=== PATIENT | male | born 1945 | race Caucasian/White ===

== ENCOUNTER → 2016-03-19 | Outpatient (CLI) | payer MEDICARE ==
[~2016-03-19] MED LIST: ACTOS45 MG PO; ALLERGY RELIEF10 MG PO; ASPIRIN81 M1 PO; ASTEPRO137 MCG/Ac; ASTEPRO137 MCG/Ac NS; BACTRIM DS 8001 TA1 PO; BACTROBAN CREAM15 GM PO; CADUET 10 MG-201 TA1 PO; CADUET 10 MG-201 TAB PO; CALCIUM600 M2 PO; DOXYCYCLINE100 M3 PO; FUROSEMIDE40 MG PO; GLYBURIDE AND M PO; GLYBURIDE AND M1 TA1 PO; GLYBURIDE/METFO1 TA2 PO; GLYBURIDE/METFO1 TA9 PO; HYDROCODONE BIT1 T11 PO; IBUPROFEN 30 M800 MG PO; KEFLEX500 M1 PO; LANTUS SOLOS100 U/M1 SC; LANTUS100 U/ML SC; LEVAQUIN750 M1 PO; LIPITOR20 MG PO; METFORMIN HCL500 MG PO; MOTRIN600 MG PO; NOVOLOG1 UNIT/0.0 SC; NOVOLOG100 U/ML SC; OMEGA 3 120 MG-1 CAP PO; OMEGA Q PLUS; OMEPRAZOLE40 MG PO; PATANOL 0.1% 5 M5 ML OPH; POTASSIUM CHLO10 ME1 PO; VICODIN 5/500 505 MG PO; VICODIN 500 MG-1 TAB PO
== END | disposition home or self-care (01) ==
LOC: LAB 13:47
DX: B34.9 Viral infection, unspecified (principal); J01.00 Acute maxillary sinusitis, unspecified; R51 Headache

== ENCOUNTER 2016-05-24 14:43 | Emergency (ER) | payer MEDICARE ==
[~2016-05-24] VITALS: Wt 136.1 kg
[~2016-05-24 14:43] MED LIST changes: -HYDROCODONE BIT1 T11 PO; -METFORMIN HCL500 MG PO
[2016-05-24] MEDS ORDERED: METFORMIN HCL500 MG PO (14:56)
[2016-05-24 15:35] LABS: BASO % 0.5 % (0.0-1.0); EOS # 0.1 10*3/uL (0.0-0.4); EOS % 2.4 % (1.0-4.0); HEMATOCRIT 37.8 % (42.0-52.0); HEMOGLOBIN 12.1 g/dl (14.0-18.0); IG # 0.1 10*3/uL (0.0-0.1); LYMPH # 1.4 10*3/uL (1.3-4.4); LYMPH % 23.2 % (27.0-41.0); MEAN CELL VOLUME 95.7 fl (80.0-94.0); MEAN CORPUSCULAR HGB 30.6 pg (27.0-31.0); MEAN PLATELET VOLUME 9.5 fl (9.6-12.3); MONO # 0.4 10*3/uL (0.1-1.0); MONO % 7.1 % (3.0-9.0); NEUT # 3.9 10*3/uL (2.3-7.9); NEUT % 65.1 % (47.0-73.0); PLATELET COUNT AUTOMATED 126 10*3/uL (130-400); RED BLOOD COUNT 3.95 10*6/uL (4.50-5.90); RED CELL DISTRI WIDTH 14.3 % (0-14.5); WHITE BLOOD COUNT 5.9 10*3/uL (4.8-10.8)
[2016-05-24 15:46] LABS: PROTHROMBIN TIME 10.2 SECONDS (9.0-12.4)
[2016-05-24 15:52] LABS: ALBUMIN 3.5 gm/dl (3.1-4.5); ALKALINE PHOSPHATASE 115 U/L (45-117); BUN 27 mg/dl (7-24); C-REACTIVE PROTEIN 0.61 MG/DL (0-0.3); CARBON DIOXIDE 32 mmol/L (21-32); CHLORIDE 106 mmol/L (98-107); CPK 139 U/L (39-308); EST GLOM FILT AFRICAN AMERICAN 52 ml/min; GLUCOSE 143 mg/dL (65-99); MAGNESIUM 2.2 mg/dL (1.5-2.1); POTASSIUM 4.8 mmol/L (3.5-5.1); SGOT/AST 18 IU/L (3-35); SGPT/ALT 31 U/L (12-78); SODIUM 144 mmol/L (136-145); TOTAL PROTEIN 6.4 gm/dL (6.4-8.2)
[2016-05-24 15:54] LABS: BILIRUBIN, TOTAL 0.3 mg/dl (0.2-1.0)
[2016-05-24 15:57] LABS: CKMB 6.9 ng/ml (0.5-3.6)
[2016-05-24 16:23] LABS: TROPONIN I < 0.015 ng/ml (<0.045)
[2016-05-24] MEDS ORDERED: HYDROCODONE BIT1 T11 PO (18:58)
== END 2016-05-24 19:00 | disposition home or self-care (01) ==
LOC: ED 14:43
PROVIDERS: Emergency Medicine
DX: S20.212A Contusion of left front wall of thorax, initial encounter (principal); Z90.49 Acquired absence of other specified parts of digestive tract; Z79.899 Other long term (current) drug therapy; W00.0XXA Fall on same level due to ice and snow, initial encounter; Y93.89 Activity, other specified; Y92.89 Other specified places as the place of occurrence of the external cause; Y99.9 Unspecified external cause status

== ENCOUNTER → 2016-09-25 | Outpatient (CLI) | payer MEDICARE ==
[~2016-09-25] MED LIST changes: +ALLERGY RELIEF4 M1 PO; +HYDROCODONE BIT1 T11 PO; +METFORMIN HCL500 MG PO; +NEURONTIN100 MG PO
== END | disposition home or self-care (01) ==
LOC: CARD 03:00
DX: R07.2 Precordial pain (principal)

== ENCOUNTER → 2018-04-17 | Outpatient (CLI) | payer MEDICARE ==
[~2018-04-17] MED LIST changes: +OZEMPIC1 MG/0.75 SQ; +PREDNISONE20 M1 PO; +SYMB160 INH
[2018-04-17 15:40] LABS: BASO % 0.6 % (0.0-1.0); EOS # 0.3 10*3/uL (0.0-0.4); EOS % 4.2 % (1.0-4.0); HEMATOCRIT 40.7 % (42.0-52.0); HEMOGLOBIN 12.9 g/dl (14.0-18.0); LYMPH # 1.7 10*3/uL (1.3-4.4); LYMPH % 25.8 % (27.0-41.0); MEAN CELL VOLUME 100.7 fl (80.0-94.0); MEAN CORPUSCULAR HGB 31.9 pg (27.0-31.0); MEAN CORPUSCULAR HGB CONC 31.7 g/dl (33.0-37.0); MEAN PLATELET VOLUME 9.7 fl (9.6-12.3); MONO # 0.3 10*3/uL (0.1-1.0); MONO % 5.3 % (3.0-9.0); NEUT # 4.1 10*3/uL (2.3-7.9); NEUT % 63.3 % (47.0-73.0); PLATELET COUNT AUTOMATED 116 10*3/uL (130-400); RED BLOOD COUNT 4.04 10*6/uL (4.50-5.90); RED CELL DISTRI WIDTH 13.6 % (0-14.5); WHITE BLOOD COUNT 6.4 10*3/uL (4.8-10.8)
[2018-04-18 07:07] LABS: HEPATITIS B SURFACE AG Negative (Negative); HEPATITIS C VIRUS ANTIBODY <0.1 s/co (0.0-0.9)
[2018-04-18 08:13] LABS: RHEUMATOID ARTHRITIS FACTOR <10.0 IU/mL (0.0-13.9)
[2018-04-19 12:06] LABS: DILUTE PROTHROMBIN TIME 47.4 sec (0.0-55.0); DPT CONFIRM RATIO 1.18 Ratio (0.00-1.40); LUPUS DRVVT 42.8 sec (0.0-47.0); PTT-LA 32.1 sec (0.0-51.9); THROMBIN TIME 17.2 sec (0.0-23.0)
[2018-04-19 13:08] LABS: LUPUS REFLEX INTERPRETATION Comment: (.)
[2018-04-20 12:09] LABS: ANTI-RNP ANTIBODIES <0.2 AI (0.0-0.9)
[2018-04-20 21:08] LABS: CCP ANTIBODIES IGG/IGA 4 units (0-19)
[2018-04-22 14:11] LABS: HLA-B27 ANTIGEN Negative (.)
== END | disposition home or self-care (01) ==
LOC: LAB 15:05
PROVIDERS: Orthopaedic Surgery
DX: M25.50 Pain in unspecified joint (principal); R53.1 Weakness

== ENCOUNTER → 2018-05-20 | Day surgery (SDC) | payer MEDICARE ==
[~2018-05-20] VITALS: Ht 182.8 cm; Wt 138.3 kg
--- NOTE | ~2018-05-20 | O ---
[place], [place] OPERATIVE NOTE NAME: [id number] UNIT #: [id number] ROOM: DOCTOR: TERRANCE GO MD BIRTHDATE: [birth year] DOS: 05/20/2018 PREOPERATIVE DIAGNOSIS: Cataract, left eye. POSTOPERATIVE DIAGNOSIS: Cataract, left eye. OPERATION: Extracapsular cataract extraction by phacoemulsification with posterior chamber intraocular lens implantation, left eye. ANESTHESIA: Monitored standby. OPERATIVE FINDINGS AND PROCEDURE: 2% Xylocaine topical anesthetic gel was applied to the eye in the preop area. The patient was taken to the operating room and prepped and draped in the standard fashion for sterile intraocular surgery. A time out procedure was performed verifying correct patient, correct site and corrects lens with Dandre Go M.D. The operating microscope was swung into position and the lid speculum was inserted. Using a Temitope paracentesis blade, a paracentesis was made through clear cornea. Viscoelastic was used to fill the anterior chamber. Using a metal keratome a 2.4 mm self-sealing clear corneal cataract incision was made temporally at the limbus. Using a pre-bent 25 gauge cystotome needle, a standard continuous curvilinear capsulorrhexis was performed. The anterior capsule was removed with forceps. The lens nucleus was hydrodissected and phacoemulsified in the posterior chamber. Cortical material was removed with the irrigation aspiration hand piece and the posterior capsule was then polished with a curet under irrigation. The posterior chamber and capsular bag were filled with viscoelastic. A posterior chamber intraocular lens manufactured by: [employer], Model #[id number] and 22.0 diopters in strength were then inserted into the posterior chamber and within the capsular bag using the lens cartridge and injector system. Viscoelastic was removed using the irrigation aspiration handpiece. The anterior chamber was filled with balanced salt solution through the paracentesis. Both the paracentesis site and cataract incisions were hydrated with BSS and verified to be water-tight and self-sealing. Cefuroxime 1 mg/0.1 mL was injected into the anterior chamber through the paracentesis site. The incision checked to be water-tight using a Weck-Melani sponge. The integrity of the cataract wound and ocular tension were checked. Lid speculum and drapes were removed. The patient was transferred from the operating room to the recovery room in satisfactory condition. [place], [place] OPERATIVE NOTE NAME: IGNACIO TORRES UNIT #: [id number] ROOM: DOCTOR: TERRANCE GO MD BIRTHDATE: [birth year] TERRANCE GO MD CM:OPRECORD:OPERATIVE NOTE [id number] TERRANCE GO MD 05/20/18 1140 interface
[2018-05-20 08:16] VITALS: BP 120/50
[2018-05-20 09:39] VITALS: BP 125/81
[2018-05-20 09:54] VITALS: BP 157/55
[2018-05-20 10:09] VITALS: BP 149/70
== END | disposition home or self-care (01) ==
LOC: SDC 05-15 13:15
DX: E11.36 Type 2 diabetes mellitus with diabetic cataract (principal); H25.812 Combined forms of age-related cataract, left eye; K21.9 Gastro-esophageal reflux disease without esophagitis; E66.01 Morbid (severe) obesity due to excess calories; E78.5 Hyperlipidemia, unspecified; I25.10 Atherosclerotic heart disease of native coronary artery without angina pectoris; I10 Essential (primary) hypertension; Z79.82 Long term (current) use of aspirin; Z79.4 Long term (current) use of insulin; Z79.84 Long term (current) use of oral hypoglycemic drugs; Z79.899 Other long term (current) drug therapy; Z90.49 Acquired absence of other specified parts of digestive tract; Z98.890 Other specified postprocedural states; Z95.818 Presence of other cardiac implants and grafts; Z68.41 Body mass index [BMI] 40.0-44.9, adult; Z83.3 Family history of diabetes mellitus

== ENCOUNTER → 2018-06-10 | Day surgery (SDC) | payer MEDICARE ==
[~2018-06-10] VITALS: Ht 182.8 cm; Wt 136.1 kg
--- NOTE | ~2018-06-10 | O ---
[place], [place] OPERATIVE NOTE NAME: [facility]RES [id number] UNIT #: [id number] ROOM: DOCTOR: TERRANCE GO MD BIRTHDATE: [birth year] DOS: 06/10/2018 PREOPERATIVE DIAGNOSIS: Cataract, right eye. POSTOPERATIVE DIAGNOSIS: Cataract, right eye. OPERATION: Extracapsular cataract extraction by phacoemulsification with posterior chamber intraocular lens implantation, right eye. ANESTHESIA: Monitored standby. OPERATIVE FINDINGS AND PROCEDURE: 2% Xylocaine topical anesthetic gel was applied to the eye in the preop area. The patient was taken to the operating room and prepped and draped in the standard fashion for sterile intraocular surgery. A time out procedure was performed verifying correct patient, correct site and corrects lens with Dandre Go M.D. The operating microscope was swung into position and the lid speculum was inserted. Using a Temitope paracentesis blade, a paracentesis was made through clear cornea. Viscoelastic was used to fill the anterior chamber. Using a metal keratome a 2.4 mm self-sealing clear corneal cataract incision was made temporally at the limbus. Using a pre-bent 25 gauge cystotome needle, a standard continuous curvilinear capsulorrhexis was performed. The anterior capsule was removed with forceps. The lens nucleus was hydrodissected and phacoemulsified in the posterior chamber. Cortical material was removed with the irrigation aspiration hand piece and the posterior capsule was then polished with a curet under irrigation. The posterior chamber and capsular bag were filled with viscoelastic. A posterior chamber intraocular lens manufactured by: [employer] [id number] and 21.5 diopters in strength were then inserted into the posterior chamber and within the capsular bag using the lens cartridge and injector system. Viscoelastic was removed using the irrigation aspiration handpiece. The anterior chamber was filled with balanced salt solution through the paracentesis. Both the paracentesis site and cataract incisions were hydrated with BSS and verified to be water-tight and self-sealing. Cefuroxime 1 mg/0.1 mL was injected into the anterior chamber through the paracentesis site. The incision checked to be water-tight using a Weck-Melani sponge. The integrity of the cataract wound and ocular tension were checked. Lid speculum and drapes were removed. The patient was transferred from the operating room to the recovery room in satisfactory condition. [place], [place] OPERATIVE NOTE NAME: IGNACIO TORRES UNIT #: [id number] ROOM: DOCTOR: TERRANCE GO MD BIRTHDATE: [birth year] TERRANCE GO MD CM:OPRECORD:OPERATIVE NOTE [id number] TERRANCE GO MD 06/10/18 0816 interface
[2018-06-10 07:00] VITALS: BP 122/58
[2018-06-10 08:01] VITALS: BP 133/58
[2018-06-10 08:15] VITALS: BP 136/64
[2018-06-10 08:29] VITALS: BP 144/63
== END | disposition home or self-care (01) ==
LOC: SDC 06-04 13:15
DX: E11.36 Type 2 diabetes mellitus with diabetic cataract (principal); H25.811 Combined forms of age-related cataract, right eye; M19.90 Unspecified osteoarthritis, unspecified site; I10 Essential (primary) hypertension; K21.9 Gastro-esophageal reflux disease without esophagitis; E66.01 Morbid (severe) obesity due to excess calories; I25.10 Atherosclerotic heart disease of native coronary artery without angina pectoris; E78.5 Hyperlipidemia, unspecified; Z79.82 Long term (current) use of aspirin; Z79.899 Other long term (current) drug therapy; Z79.84 Long term (current) use of oral hypoglycemic drugs; Z79.4 Long term (current) use of insulin; Z98.42 Cataract extraction status, left eye; Z90.49 Acquired absence of other specified parts of digestive tract; Z98.890 Other specified postprocedural states; Z95.818 Presence of other cardiac implants and grafts; Z68.41 Body mass index [BMI] 40.0-44.9, adult; Z83.3 Family history of diabetes mellitus

== ENCOUNTER → 2019-02-24 | Day surgery (SDC) | payer MEDICARE ==
[~2019-02-24] VITALS: Ht 182.8 cm; Wt 127.0 kg
[~2019-02-24] MED LIST changes: +JARDIANCE10 MG PO; +Lopressor25 MG PO; +MODAFINIL200 M1 PO; +POTASSIUM CHLO10 ME4 PO; +PROAIR HFA8.5 GM INH; +TESSALON PERLE100 M1 PO; +ZITHROMAX250 MG PO
[2019-02-24 08:40] VITALS: BP 98/54
[2019-02-24 08:55] VITALS: BP 92/59
[2019-02-24 09:10] VITALS: BP 110/59
== END | disposition home or self-care (01) ==
LOC: SDC 02-22 11:00
DX: Z12.11 Encounter for screening for malignant neoplasm of colon (principal); D12.5 Benign neoplasm of sigmoid colon; K57.30 Diverticulosis of large intestine without perforation or abscess without bleeding; K21.9 Gastro-esophageal reflux disease without esophagitis; I10 Essential (primary) hypertension; E78.5 Hyperlipidemia, unspecified; E11.9 Type 2 diabetes mellitus without complications; I25.10 Atherosclerotic heart disease of native coronary artery without angina pectoris; E66.9 Obesity, unspecified; Z68.38 Body mass index [BMI] 38.0-38.9, adult; Z86.010 Personal history of colon polyps; Z79.899 Other long term (current) drug therapy; Z98.890 Other specified postprocedural states; Z83.3 Family history of diabetes mellitus

== ENCOUNTER 2019-03-08 14:41 | Emergency (ER) | payer MEDICARE ==
[~2019-03-08] VITALS: Ht 182.8 cm; Wt 130.6 kg
[~2019-03-08 14:41] MED LIST changes: -PROAIR HFA8.5 GM INH; -TESSALON PERLE100 M1 PO; -ZITHROMAX250 MG PO
[2019-03-08] MEDS ORDERED: ZITHROMAX250 MG PO (17:24)
[2019-03-08] MEDS ORDERED: TESSALON PERLE100 M1 PO (17:24)
[2019-03-08] MEDS ORDERED: PROAIR HFA8.5 GM INH (17:24)
== END 2019-03-08 17:29 | disposition home or self-care (01) ==
LOC: ED 14:41
DX: J40 Bronchitis, not specified as acute or chronic (principal); E66.01 Morbid (severe) obesity due to excess calories; K21.9 Gastro-esophageal reflux disease without esophagitis; M19.90 Unspecified osteoarthritis, unspecified site; E78.5 Hyperlipidemia, unspecified; N18.3 Chronic kidney disease, stage 3 (moderate); Z79.899 Other long term (current) drug therapy; Z79.82 Long term (current) use of aspirin; Z87.891 Personal history of nicotine dependence

== ENCOUNTER → 2021-06-15 | Outpatient (CLI) | payer OTHER ==
[~2021-06-15] MED LIST changes: +PROAIR HFA8.5 GM INH; +TESSALON PERLE100 M1 PO; +ZITHROMAX250 MG PO
== END | disposition home or self-care (01) ==
LOC: RAD 15:14
PROVIDERS: ATTEND Internal Medicine Nephrology
DX: R05.9 Cough, unspecified (principal)

== ENCOUNTER → 2021-06-28 | Outpatient (CLI) | payer OTHER ==
[2021-06-28 14:03] LABS: BASO % 0.4 % (0.0-1.0); EOS # 0.3 10*3/uL (0.0-0.4); EOS % 3.8 % (1.0-4.0); HEMATOCRIT 41.5 % (42.0-52.0); LYMPH # 1.7 10*3/uL (1.3-4.4); LYMPH % 25.6 % (27.0-41.0); MEAN CELL VOLUME 99.8 fl (80.0-94.0); MEAN CORPUSCULAR HGB 32.5 pg (27.0-31.0); MEAN CORPUSCULAR HGB CONC 32.5 g/dl (33.0-37.0); MEAN PLATELET VOLUME 9.3 fl (9.6-12.3); MONO # 0.4 10*3/uL (0.1-1.0); NEUT # 4.3 10*3/uL (2.3-7.9); NEUT % 62.9 % (47.0-73.0); PLATELET COUNT AUTOMATED 101 10*3/uL (130-400); RED BLOOD COUNT 4.16 10*6/uL (4.50-5.90); RED CELL DISTRI WIDTH 13.1 % (0-14.5); WHITE BLOOD COUNT 6.8 10*3/uL (4.8-10.8)
[2021-06-28 14:54] LABS: CREATININE 2.98 mg/dL (0.70-1.30); POTASSIUM 4.7 mmol/L (3.5-5.1); TOTAL PROTEIN 6.4 gm/dL (6.4-8.2)
== END | disposition home or self-care (01) ==
LOC: CT 13:00 → LAB 13:07
PROVIDERS: ATTEND Internal Medicine Nephrology
DX: R91.8 Other nonspecific abnormal finding of lung field (principal)

== ENCOUNTER 2021-06-29 18:48 | Emergency (ER) | payer OTHER ==
[~2021-06-29] VITALS: Wt 117.9 kg
[2021-06-29 19:32] LABS: BASO % 0.4 % (0.0-1.0); EOS # 0.3 10*3/uL (0.0-0.4); EOS % 4.3 % (1.0-4.0); HEMATOCRIT 41.3 % (42.0-52.0); LYMPH # 1.6 10*3/uL (1.3-4.4); LYMPH % 22.9 % (27.0-41.0); MEAN CELL VOLUME 99.5 fl (80.0-94.0); MEAN CORPUSCULAR HGB 32.3 pg (27.0-31.0); MEAN CORPUSCULAR HGB CONC 32.4 g/dl (33.0-37.0); MEAN PLATELET VOLUME 9.2 fl (9.6-12.3); MONO # 0.5 10*3/uL (0.1-1.0); MONO % 6.4 % (3.0-9.0); NEUT # 4.7 10*3/uL (2.3-7.9); NEUT % 65.2 % (47.0-73.0); PLATELET COUNT AUTOMATED 98 10*3/uL (130-400); RED BLOOD COUNT 4.15 10*6/uL (4.50-5.90); RED CELL DISTRI WIDTH 12.8 % (0-14.5); WHITE BLOOD COUNT 7.2 10*3/uL (4.8-10.8)
[2021-06-29 19:51] LABS: CREATININE 2.85 mg/dL (0.70-1.30); POTASSIUM 4.8 mmol/L (3.5-5.1)
[2021-06-29] MEDS ORDERED: PREDNISONE20 M1 PO (20:10)
== END 2021-06-29 20:18 | disposition home or self-care (01) ==
LOC: ED 18:48
PROVIDERS: Internal Medicine
DX: J40 Bronchitis, not specified as acute or chronic (principal); Z79.899 Other long term (current) drug therapy; Z79.82 Long term (current) use of aspirin; Z98.890 Other specified postprocedural states; Z87.891 Personal history of nicotine dependence

== ENCOUNTER → 2021-07-13 | Outpatient (CLI) | payer OTHER ==
[2021-07-13 11:29] LABS: BASO % 0.4 % (0.0-1.0); EOS # 0.2 10*3/uL (0.0-0.4); EOS % 2.4 % (1.0-4.0); HEMATOCRIT 41.7 % (42.0-52.0); LYMPH # 1.9 10*3/uL (1.3-4.4); LYMPH % 23.3 % (27.0-41.0); MEAN CELL VOLUME 99.5 fl (80.0-94.0); MEAN CORPUSCULAR HGB 32.9 pg (27.0-31.0); MEAN CORPUSCULAR HGB CONC 33.1 g/dl (33.0-37.0); MEAN PLATELET VOLUME 9.6 fl (9.6-12.3); MONO # 0.6 10*3/uL (0.1-1.0); MONO % 7.5 % (3.0-9.0); NEUT # 5.2 10*3/uL (2.3-7.9); NEUT % 64.6 % (47.0-73.0); PLATELET COUNT AUTOMATED 96 10*3/uL (130-400); RED BLOOD COUNT 4.19 10*6/uL (4.50-5.90); RED CELL DISTRI WIDTH 12.5 % (0-14.5)
[2021-07-13 11:46] LABS: CREATININE 1.98 mg/dL (0.70-1.30); POTASSIUM 4.5 mmol/L (3.5-5.1); TOTAL PROTEIN 6.5 gm/dL (6.4-8.2)
[2021-07-14 10:07] LABS: CREATININE,URINE 126.5 mg/dL (Not Estab.)
== END | disposition home or self-care (01) ==
LOC: LAB 11:07
PROVIDERS: ATTEND Internal Medicine Nephrology
DX: N17.9 Acute kidney failure, unspecified (principal); Z79.899 Other long term (current) drug therapy

== ENCOUNTER 2021-09-20 12:07 | Inpatient (IN) | payer OTHER ==
[~2021-09-20] VITALS: Ht 182.9 cm; Wt 116.3 kg
[2021-09-20 12:16] VITALS: BP 108/47
[2021-09-20 12:42] LABS: BASO % 0.3 % (0.0-1.0); HEMATOCRIT 39.9 % (42.0-52.0); LYMPH # 1.1 10*3/uL (1.3-4.4); LYMPH % 28.5 % (27.0-41.0); MEAN CORPUSCULAR HGB 32.7 pg (27.0-31.0); MEAN CORPUSCULAR HGB CONC 32.3 g/dl (33.0-37.0); MEAN PLATELET VOLUME 10.2 fl (9.6-12.3); MONO # 0.3 10*3/uL (0.1-1.0); MONO % 7.9 % (3.0-9.0); NEUT # 2.4 10*3/uL (2.3-7.9); PLATELET COUNT AUTOMATED 57 10*3/uL (130-400); RED BLOOD COUNT 3.95 10*6/uL (4.50-5.90); RED CELL DISTRI WIDTH 13.7 % (0-14.5); WHITE BLOOD COUNT 3.9 10*3/uL (4.8-10.8)
[2021-09-20 12:57] LABS: CREATININE 2.14 mg/dL (0.70-1.30); POTASSIUM 4.5 mmol/L (3.5-5.1); TOTAL PROTEIN 6.3 gm/dL (6.4-8.2)
[2021-09-20 13:03] LABS: BILIRUBIN Negative (Negative); BLOOD 1+ (Negative); CLARITY Cloudy (Clear); COLOR Yellow (Yellow); GLUCOSE 3+ (Negative); KETONE 1+ (Negative); LEUKO ESTERASE Negative (Negative); NITRITE Negative (Negative); PH 5.5 (4.5-8.0); SPECIFIC GRAVITY >= 1.030 (1.001-1.030); UROBILINOGEN 0.2 E.U./dl (0.0-1.0)
[2021-09-20 13:04] LABS: INTERNATIONAL NORM RATIO 0.9 (2.0-3.5)
[2021-09-20 13:21] LABS: BACTERIA 2+
[2021-09-20 14:02] VITALS: BP 123/58
[2021-09-20 16:42] VITALS: BP 118/52
[2021-09-20 17:48] VITALS: BP 124/42
[2021-09-20 19:44] VITALS: BP 113/65
[2021-09-20 20:15] VITALS: BP 150/70
[2021-09-20] MEDS ORDERED: LEVEMIR FL100 UNIT/1 SC (20:35)
[2021-09-20] MEDS ORDERED: SINGULAIR10 M1 PO (20:38)
[2021-09-20] MEDS ORDERED: EFFIENT10 M1 PO (20:41)
[2021-09-20] MEDS ORDERED: LANTUS SOL100 UNIT/1 SC (21:05)
[2021-09-20] MEDS ORDERED: LISINOPRIL2.5 MG PO (21:06)
[2021-09-20] MEDS ORDERED: ZYRTEC ALLERGY10 MG PO (21:12)
[2021-09-21] VITALS: BP 128/78
[2021-09-21 06:09] LABS: CREATININE 2.1 mg/dL (0.70-1.30); POTASSIUM 4.8 mmol/L (3.5-5.1)
[2021-09-21 06:15] LABS: FREE T4 1.2 ng/dl (0.76-1.46); THYROID STIM HORMONE (HS) 0.651 uIU/ml (0.358-4.75)
[2021-09-21 06:23] LABS: BASO % 0.2 % (0.0-1.0); HEMATOCRIT 39.3 % (42.0-52.0); LYMPH # 0.9 10*3/uL (1.3-4.4); LYMPH % 22.3 % (27.0-41.0); MEAN CELL VOLUME 102.1 fl (80.0-94.0); MEAN CORPUSCULAR HGB CONC 32.3 g/dl (33.0-37.0); MEAN PLATELET VOLUME 10.5 fl (9.6-12.3); MONO # 0.3 10*3/uL (0.1-1.0); MONO % 7.4 % (3.0-9.0); NEUT # 2.8 10*3/uL (2.3-7.9); NEUT % 69.1 % (47.0-73.0); PLATELET COUNT AUTOMATED 55 10*3/uL (130-400); RED BLOOD COUNT 3.85 10*6/uL (4.50-5.90); RED CELL DISTRI WIDTH 14.3 % (0-14.5)
[2021-09-21 08:00] VITALS: BP 141/68
[2021-09-21 08:02] LABS: FERRITIN 349.9 ng/mL (22.0-322.0)
[2021-09-21 16:00] VITALS: BP 110/60; BP 97/56
[2021-09-21 20:00] VITALS: BP 131/66
[2021-09-21 21:41] LABS: URINE CREATININE RANDOM 83.9 mg/dL
[2021-09-22] VITALS: BP 115/56
[2021-09-22 05:45] LABS: CREATININE 2.13 mg/dL (0.70-1.30); POTASSIUM 4.4 mmol/L (3.5-5.1)
[2021-09-22 06:11] LABS: BASO % 0.2 % (0.0-1.0); HEMATOCRIT 37.6 % (42.0-52.0); LYMPH # 0.8 10*3/uL (1.3-4.4); LYMPH % 17.7 % (27.0-41.0); MEAN CELL VOLUME 99.5 fl (80.0-94.0); MEAN CORPUSCULAR HGB 32.3 pg (27.0-31.0); MEAN CORPUSCULAR HGB CONC 32.4 g/dl (33.0-37.0); MEAN PLATELET VOLUME 11.4 fl (9.6-12.3); MONO # 0.4 10*3/uL (0.1-1.0); MONO % 8.2 % (3.0-9.0); NEUT # 3.1 10*3/uL (2.3-7.9); NEUT % 72.7 % (47.0-73.0); PLATELET COUNT AUTOMATED 66 10*3/uL (130-400); RED BLOOD COUNT 3.78 10*6/uL (4.50-5.90); RED CELL DISTRI WIDTH 13.8 % (0-14.5); WHITE BLOOD COUNT 4.3 10*3/uL (4.8-10.8)
[2021-09-22 08:00] VITALS: BP 111/51
[2021-09-22 12:00] VITALS: BP 124/49; BP 124/51
[2021-09-22] MEDS ORDERED: AZITHROMYCIN500 M1 IV (15:08)
[2021-09-22] MEDS ORDERED: DEXAMETHASONE6 MG PO (15:08)
[2021-09-22 16:00] VITALS: BP 121/53
[2021-09-22 20:00] VITALS: BP 114/80
[2021-09-23] VITALS: BP 95/58
[2021-09-23 06:06] LABS: BASO % 0.2 % (0.0-1.0); HEMATOCRIT 35.4 % (42.0-52.0); LYMPH # 1.1 10*3/uL (1.3-4.4); LYMPH % 17.7 % (27.0-41.0); MEAN CELL VOLUME 98.3 fl (80.0-94.0); MEAN CORPUSCULAR HGB 32.2 pg (27.0-31.0); MEAN CORPUSCULAR HGB CONC 32.8 g/dl (33.0-37.0); MEAN PLATELET VOLUME 10.6 fl (9.6-12.3); MONO # 0.5 10*3/uL (0.1-1.0); MONO % 7.5 % (3.0-9.0); NEUT # 4.5 10*3/uL (2.3-7.9); NEUT % 74.1 % (47.0-73.0); PLATELET COUNT AUTOMATED 63 10*3/uL (130-400); RED CELL DISTRI WIDTH 13.5 % (0-14.5)
[2021-09-23 08:00] VITALS: BP 116/67
[2021-09-23 08:06] LABS: CREATININE,URINE 80.7 mg/dL (Not Estab.)
[2021-09-23 12:09] VITALS: BP 130/68
[2021-09-23 16:00] VITALS: BP 126/64
[2021-09-23 20:00] VITALS: BP 115/51
[2021-09-24] VITALS: BP 122/58
[2021-09-24 06:04] LABS: CREATININE 1.7 mg/dL (0.70-1.30); POTASSIUM 4.6 mmol/L (3.5-5.1)
[2021-09-24 06:19] LABS: HEMATOCRIT 35.9 % (42.0-52.0); MEAN CELL VOLUME 97.6 fl (80.0-94.0); MEAN CORPUSCULAR HGB 32.9 pg (27.0-31.0); MEAN CORPUSCULAR HGB CONC 33.7 g/dl (33.0-37.0); MEAN PLATELET VOLUME 11.2 fl (9.6-12.3); PLATELET COUNT AUTOMATED 77 10*3/uL (130-400); RED BLOOD COUNT 3.68 10*6/uL (4.50-5.90); RED CELL DISTRI WIDTH 13.3 % (0-14.5); WHITE BLOOD COUNT 5.7 10*3/uL (4.8-10.8)
[2021-09-24 06:40] LABS: MANUAL DIFF REFLEX YES
[2021-09-24 07:45] LABS: PLATELET SUFFICIENCY LOW (NORMAL); TOTAL CELLS COUNTED 100 #CELLS
[2021-09-24 07:47] LABS: BURR CELLS FEW; POLYCHROMASIA SLIGHT
[2021-09-24 08:00] VITALS: BP 117/50
[2021-09-24 12:00] VITALS: BP 117/58
[2021-09-24 16:00] VITALS: BP 120/62
[2021-09-24 20:00] VITALS: BP 114/40
[2021-09-24 22:39] VITALS: BP 126/56
[2021-09-25 06:32] LABS: CREATININE 1.69 mg/dL (0.70-1.30); POTASSIUM 4.8 mmol/L (3.5-5.1)
[2021-09-25 07:42] LABS: BASO % 0.2 % (0.0-1.0); EOS % 0.2 % (1.0-4.0); HEMATOCRIT 35.6 % (42.0-52.0); LYMPH # 1.3 10*3/uL (1.3-4.4); LYMPH % 21.2 % (27.0-41.0); MEAN CELL VOLUME 94.9 fl (80.0-94.0); MEAN CORPUSCULAR HGB 32.8 pg (27.0-31.0); MEAN CORPUSCULAR HGB CONC 34.6 g/dl (33.0-37.0); MEAN PLATELET VOLUME 10.6 fl (9.6-12.3); MONO # 0.4 10*3/uL (0.1-1.0); MONO % 6.7 % (3.0-9.0); NEUT # 4.3 10*3/uL (2.3-7.9); NEUT % 70.7 % (47.0-73.0); PLATELET COUNT AUTOMATED 72 10*3/uL (130-400); RED BLOOD COUNT 3.75 10*6/uL (4.50-5.90); RED CELL DISTRI WIDTH 13.4 % (0-14.5); WHITE BLOOD COUNT 6.1 10*3/uL (4.8-10.8)
[2021-09-25 08:00] VITALS: BP 119/60
[2021-09-25 12:00] VITALS: BP 120/64
[2021-09-25 16:00] VITALS: BP 111/59
[2021-09-25 20:00] VITALS: BP 102/61
[2021-09-26] VITALS: BP 109/53
[2021-09-26 08:00] VITALS: BP 111/62
[2021-09-26 12:00] VITALS: BP 99/72
== END 2021-09-26 15:46 | disposition home or self-care (01) | DRG 177 ==
LOC: ED 12:07 → EDHOLD 18:38 → 4E 18:38
PROVIDERS: Emergency Medicine; Family Medicine; Internal Medicine Nephrology; ADMIT Internal Medicine; ATTEND Internal Medicine
PROC: XW033E5 Introduction of Remdesivir Anti-infective into Peripheral Vein, Percutaneous Approach, New Technology Group 5 (ICD-10-PCS; principal; 2021-09-21)
DX: U07.1 COVID-19 (principal); J12.82 Pneumonia due to coronavirus disease 2019; N17.0 Acute kidney failure with tubular necrosis; J96.01 Acute respiratory failure with hypoxia; R65.11 Systemic inflammatory response syndrome (SIRS) of non-infectious origin with acute organ dysfunction; I87.2 Venous insufficiency (chronic) (peripheral); K21.9 Gastro-esophageal reflux disease without esophagitis; N18.32 Chronic kidney disease, stage 3b; E78.5 Hyperlipidemia, unspecified; E66.01 Morbid (severe) obesity due to excess calories; D53.9 Nutritional anemia, unspecified; D69.6 Thrombocytopenia, unspecified; E11.65 Type 2 diabetes mellitus with hyperglycemia; D72.810 Lymphocytopenia; E11.22 Type 2 diabetes mellitus with diabetic chronic kidney disease; M15.9 Polyosteoarthritis, unspecified; M79.2 Neuralgia and neuritis, unspecified; R27.0 Ataxia, unspecified; I12.9 Hypertensive chronic kidney disease with stage 1 through stage 4 chronic kidney disease, or unspecified chronic kidney disease; E83.9 Disorder of mineral metabolism, unspecified; G47.33 Obstructive sleep apnea (adult) (pediatric); Z90.49 Acquired absence of other specified parts of digestive tract; Z79.4 Long term (current) use of insulin; Z87.898 Personal history of other specified conditions; Z87.891 Personal history of nicotine dependence; Z80.8 Family history of malignant neoplasm of other organs or systems; Z68.34 Body mass index [BMI] 34.0-34.9, adult

== ENCOUNTER → 2021-10-24 | Outpatient (CLI) | payer OTHER ==
[~2021-10-24] MED LIST changes: +AZITHROMYCIN500 M1 IV; +DEXAMETHASONE6 MG PO; +EFFIENT10 M1 PO; +LANTUS SOL100 UNIT/1 SC; +LEVEMIR FL100 UNIT/1 SC; +LISINOPRIL2.5 MG PO; +SINGULAIR10 M1 PO; +ZYRTEC ALLERGY10 MG PO
== END | disposition home or self-care (01) ==
LOC: RESCLI 01:03
PROVIDERS: ATTEND Emergency Medicine
DX: E11.22 Type 2 diabetes mellitus with diabetic chronic kidney disease (principal); I12.9 Hypertensive chronic kidney disease with stage 1 through stage 4 chronic kidney disease, or unspecified chronic kidney disease; N18.9 Chronic kidney disease, unspecified; I87.8 Other specified disorders of veins; J30.2 Other seasonal allergic rhinitis; K21.9 Gastro-esophageal reflux disease without esophagitis; Z79.899 Other long term (current) drug therapy; Z88.9 Allergy status to unspecified drugs, medicaments and biological substances; Z79.82 Long term (current) use of aspirin

== ENCOUNTER → 2022-03-29 | Outpatient (CLI) | payer OTHER | END | disposition home or self-care (01) | LOC: RAD 13:55 | PROVIDERS: ATTEND Orthopaedic Surgery | DX: M19.042 Primary osteoarthritis, left hand (principal); M19.041 Primary osteoarthritis, right hand; G56.03 Carpal tunnel syndrome, bilateral upper limbs ==

== ENCOUNTER → 2022-04-03 | Outpatient (CLI) | payer OTHER ==
[2022-04-03 15:23] LABS: BASO % 0.4 % (0.0-1.0); EOS # 0.2 10*3/uL (0.0-0.4); EOS % 3.2 % (1.0-4.0); HEMATOCRIT 45.5 % (42.0-52.0); LYMPH # 2.3 10*3/uL (1.3-4.4); LYMPH % 33.8 % (27.0-41.0); MEAN CELL VOLUME 97.8 fl (80.0-94.0); MEAN CORPUSCULAR HGB 32.9 pg (27.0-31.0); MEAN CORPUSCULAR HGB CONC 33.6 g/dl (33.0-37.0); MEAN PLATELET VOLUME 9.8 fl (9.6-12.3); MONO # 0.4 10*3/uL (0.1-1.0); MONO % 5.1 % (3.0-9.0); NEUT # 3.9 10*3/uL (2.3-7.9); NEUT % 56.9 % (47.0-73.0); PLATELET COUNT AUTOMATED 130 10*3/uL (130-400); RED BLOOD COUNT 4.65 10*6/uL (4.50-5.90); RED CELL DISTRI WIDTH 13.4 % (0-14.5); WHITE BLOOD COUNT 6.9 10*3/uL (4.8-10.8)
[2022-04-04 06:07] LABS: HBSAG Negative (Negative); HEP B CORE AB, IGM Negative (Negative); HEPATITIS C ANTIBODY <0.1 (0.0-0.9)
[2022-04-04 12:07] LABS: ANTI-RNP ANTIBODIES <0.2 AI (0.0-0.9)
[2022-04-04 14:07] LABS: CCP ANTIBODIES IGG/IGA 0 units (0-19)
[2022-04-05 06:07] LABS: LUPUS DRVVT 46.1 sec (0.0-47.0)
[2022-04-05 07:06] LABS: LUPUS REFLEX INTERPRETATION Comment: (.)
== END | disposition home or self-care (01) ==
LOC: LAB 14:39
PROVIDERS: ATTEND Orthopaedic Surgery
DX: M19.042 Primary osteoarthritis, left hand (principal); M19.041 Primary osteoarthritis, right hand; R53.83 Other fatigue

== ENCOUNTER → 2022-05-02 | Outpatient (CLI) | payer OTHER | END | disposition home or self-care (01) | LOC: RESCLI 00:42 | PROVIDERS: ATTEND Student in an Organized Health Care Education/Training Program | DX: I12.9 Hypertensive chronic kidney disease with stage 1 through stage 4 chronic kidney disease, or unspecified chronic kidney disease (principal); E11.22 Type 2 diabetes mellitus with diabetic chronic kidney disease; N18.9 Chronic kidney disease, unspecified; J30.2 Other seasonal allergic rhinitis; I87.8 Other specified disorders of veins; E11.40 Type 2 diabetes mellitus with diabetic neuropathy, unspecified; K21.9 Gastro-esophageal reflux disease without esophagitis; Z88.8 Allergy status to other drugs, medicaments and biological substances; Z87.891 Personal history of nicotine dependence; Z98.890 Other specified postprocedural states; Z79.899 Other long term (current) drug therapy ==

== ENCOUNTER → 2022-08-14 | Outpatient (CLI) | payer OTHER | END | disposition home or self-care (01) | LOC: LAB 08:38 | PROVIDERS: ATTEND Internal Medicine | DX: E11.65 Type 2 diabetes mellitus with hyperglycemia (principal) ==

== ENCOUNTER → 2022-11-08 | Outpatient (CLI) | payer OTHER ==
[~2022-11-08] MED LIST changes: +LASIX40 MG PO; +LOPRESSOR25 MG PO; +NOVOLOG FL100 UNIT/2 SC
== END | disposition home or self-care (01) ==
LOC: RAD 15:27
PROVIDERS: ATTEND Internal Medicine
DX: M19.041 Primary osteoarthritis, right hand (principal); M79.89 Other specified soft tissue disorders

== ENCOUNTER 2022-11-22 23:24 | Emergency (ER) | payer OTHER ==
[~2022-11-22] VITALS: Ht 182.8 cm; Wt 130.4 kg
== END 2022-11-23 00:01 | disposition home or self-care (01) ==
LOC: ED 23:24
DX: R58 Hemorrhage, not elsewhere classified (principal); I10 Essential (primary) hypertension; K21.9 Gastro-esophageal reflux disease without esophagitis; E11.9 Type 2 diabetes mellitus without complications; Z96.651 Presence of right artificial knee joint; Z98.890 Other specified postprocedural states; Z90.49 Acquired absence of other specified parts of digestive tract; Z87.891 Personal history of nicotine dependence

== ENCOUNTER 2023-04-22 20:58 | Emergency (ER) | payer MEDICARE ==
[~2023-04-22] VITALS: Ht 172.7 cm; Wt 121.6 kg
[~2023-04-22 20:58] MED LIST changes: +ACETAZOLAMIDE250 MG PO; +ARICEPT5 M1 PO; +DOXYCYCLINE HY100 M3 PO; +LEVEMIR100 UNIT/1 SC; +NEURONTIN300 MG PO; +TORSEMIDE20 MG PO
[2023-04-22 22:46] LABS: BASO % 0.4 % (0.0-1.0); EOS # 0.1 10*3/uL (0.0-0.4); HEMATOCRIT 42.7 % (42.0-52.0); LYMPH # 1.5 10*3/uL (1.3-4.4); LYMPH % 14.1 % (27.0-41.0); MEAN CELL VOLUME 95.1 fl (80.0-94.0); MEAN CORPUSCULAR HGB 30.1 pg (27.0-31.0); MEAN CORPUSCULAR HGB CONC 31.6 g/dl (33.0-37.0); MEAN PLATELET VOLUME 10.2 fl (9.6-12.3); MONO # 0.6 10*3/uL (0.1-1.0); MONO % 5.3 % (3.0-9.0); NEUT # 8.2 10*3/uL (2.3-7.9); NEUT % 78.7 % (47.0-73.0); PLATELET COUNT AUTOMATED 133 10*3/uL (130-400); RED BLOOD COUNT 4.49 10*6/uL (4.50-5.90); RED CELL DISTRI WIDTH 15.7 % (0-14.5); WHITE BLOOD COUNT 10.4 10*3/uL (4.8-10.8)
[2023-04-22 23:18] LABS: POTASSIUM 3.8 mmol/L (3.4-5.1); TOTAL PROTEIN 7.3 gm/dL (6.0-8.0)
[2023-04-23 01:23] LABS: BILIRUBIN Negative (Negative); BLOOD Negative (Negative); CLARITY Clear (Clear); COLOR Yellow (Yellow); GLUCOSE 3+ (Negative); KETONE Negative (Negative); LEUKO ESTERASE Negative (Negative); NITRITE Negative (Negative); SPECIFIC GRAVITY 1.015 (1.001-1.030); UROBILINOGEN 0.2 E.U./dl (0.0-1.0)
[2023-04-23 01:50] LABS: RBC 0-2 rbc/hpf (0-2); WBC 0-2 wbc/hpf (0-5)
== END 2023-04-23 02:16 | disposition home or self-care (01) ==
LOC: ED 20:58
PROVIDERS: Emergency Medicine
DX: R10.9 Unspecified abdominal pain (principal); I25.10 Atherosclerotic heart disease of native coronary artery without angina pectoris; I50.9 Heart failure, unspecified; E11.65 Type 2 diabetes mellitus with hyperglycemia; R78.5 Finding of other psychotropic drug in blood; D64.9 Anemia, unspecified; M19.90 Unspecified osteoarthritis, unspecified site; E11.22 Type 2 diabetes mellitus with diabetic chronic kidney disease; I13.0 Hypertensive heart and chronic kidney disease with heart failure and stage 1 through stage 4 chronic kidney disease, or unspecified chronic kidney disease; N18.32 Chronic kidney disease, stage 3b; N18.4 Chronic kidney disease, stage 4 (severe); Z88.8 Allergy status to other drugs, medicaments and biological substances; Z90.49 Acquired absence of other specified parts of digestive tract; Z98.890 Other specified postprocedural states; F17.210 Nicotine dependence, cigarettes, uncomplicated

== ENCOUNTER → 2023-05-07 | Outpatient (CLI) | payer MEDICARE ==
[2023-05-07 16:44] LABS: POTASSIUM 5.2 mmol/L (3.4-5.1)
== END ==
LOC: LAB 15:28
PROVIDERS: ATTEND Internal Medicine
DX: J84.10 Pulmonary fibrosis, unspecified (principal); R05.1 Acute cough; I10 Essential (primary) hypertension; F17.200 Nicotine dependence, unspecified, uncomplicated; E11.9 Type 2 diabetes mellitus without complications; I50.9 Heart failure, unspecified

== ENCOUNTER → 2023-05-23 | Outpatient (CLI) | payer MEDICARE | END | disposition home or self-care (01) | LOC: RAD 14:00 | PROVIDERS: ATTEND Internal Medicine | DX: M19.042 Primary osteoarthritis, left hand (principal); M19.041 Primary osteoarthritis, right hand; M25.742 Osteophyte, left hand; M25.741 Osteophyte, right hand; M25.842 Other specified joint disorders, left hand; M25.841 Other specified joint disorders, right hand; I50.32 Chronic diastolic (congestive) heart failure ==

== ENCOUNTER → 2023-06-20 | Outpatient (CLI) | payer MEDICARE ==
[~2023-06-20] MED LIST changes: +NOVOLOG100 UNIT/1 SC; +NOVOLOG100 UNIT/1 SQ
== END | disposition home or self-care (01) ==
LOC: RESCLI 15:17
PROVIDERS: ATTEND Internal Medicine
DX: I12.9 Hypertensive chronic kidney disease with stage 1 through stage 4 chronic kidney disease, or unspecified chronic kidney disease (principal); E11.22 Type 2 diabetes mellitus with diabetic chronic kidney disease; E11.40 Type 2 diabetes mellitus with diabetic neuropathy, unspecified; N18.9 Chronic kidney disease, unspecified; K21.9 Gastro-esophageal reflux disease without esophagitis; J30.2 Other seasonal allergic rhinitis; I87.8 Other specified disorders of veins; E78.5 Hyperlipidemia, unspecified; R41.3 Other amnesia; Z98.890 Other specified postprocedural states; Z88.8 Allergy status to other drugs, medicaments and biological substances; Z86.16 Personal history of COVID-19; Z79.899 Other long term (current) drug therapy

== ENCOUNTER 2023-06-27 20:46 | Emergency (ER) | payer MEDICARE ==
[~2023-06-27] VITALS: Ht 185.4 cm; Wt 113.9 kg
[~2023-06-27 20:46] MED LIST changes: -NOVOLOG100 UNIT/1 SC; -NOVOLOG100 UNIT/1 SQ
[2023-06-27] MEDS ORDERED: Tdap Vaccine 0.5 ML SYR (Adult Vaccine) IM ONE (20:55)
[2023-06-27] MEDS ORDERED: NOVOLOG100 UNIT/1 SC (21:02)
[2023-06-27] MEDS ORDERED: NOVOLOG100 UNIT/1 SQ (21:03)
[2023-06-27 21:13] LABS: BASO % 0.1 % (0.0-1.0); EOS % 0.1 % (1.0-4.0); HEMATOCRIT 42.4 % (42.0-52.0); LYMPH # 0.7 10*3/uL (1.3-4.4); LYMPH % 5.2 % (27.0-41.0); MEAN CORPUSCULAR HGB CONC 30.7 g/dl (33.0-37.0); MONO # 0.8 10*3/uL (0.1-1.0); MONO % 5.8 % (3.0-9.0); NEUT # 11.7 10*3/uL (2.3-7.9); PLATELET COUNT AUTOMATED 162 10*3/uL (130-400); RED CELL DISTRI WIDTH 15.4 % (0-14.5); WHITE BLOOD COUNT 13.3 10*3/uL (4.8-10.8)
[2023-06-27 21:28] LABS: ACT PARTIAL THROMBO TIME 23.1 SECONDS (20.0-32.1)
[2023-06-27 21:40] LABS: ALKALINE PHOSPHATASE 120 U/L (46-116); BUN 37 mg/dl (9-23); CHLORIDE 100 mmol/L (98-107); LIPASE 54 U/L (12-53); POTASSIUM 4.5 mmol/L (3.4-5.1); SGPT/ALT 23 U/L (5-49); TOTAL PROTEIN 6.8 gm/dL (6.0-8.0)
[2023-06-27 21:41] LABS: ETHYL ALCOHOL < 3.0 mg/dl (<3)
[2023-06-27] MEDS ORDERED: ceFAZolin sodium 1 GM VIAL IM ONE (23:40)
== END 2023-06-28 00:19 | disposition short-term general hospital (02) ==
LOC: ED 20:46
PROVIDERS: Internal Medicine
DX: S02.0XXA Fracture of vault of skull, initial encounter for closed fracture (principal); S02.32XA Fracture of orbital floor, left side, initial encounter for closed fracture; S02.40DA Maxillary fracture, left side, initial encounter for closed fracture; S01.81XA Laceration without foreign body of other part of head, initial encounter; K21.9 Gastro-esophageal reflux disease without esophagitis; E11.9 Type 2 diabetes mellitus without complications; I11.0 Hypertensive heart disease with heart failure; I50.9 Heart failure, unspecified; Z88.8 Allergy status to other drugs, medicaments and biological substances; Z98.890 Other specified postprocedural states; Z90.49 Acquired absence of other specified parts of digestive tract; Z87.891 Personal history of nicotine dependence; Y08.89XA Assault by other specified means, initial encounter; Y93.89 Activity, other specified; Y92.89 Other specified places as the place of occurrence of the external cause; Y99.8 Other external cause status

== ENCOUNTER 2023-08-26 15:14 | Emergency (ER) | payer MEDICARE ==
[~2023-08-26] VITALS: Ht 182.8 cm
[~2023-08-26 15:14] MED LIST changes: +NOVOLOG100 UNIT/1 SC; +NOVOLOG100 UNIT/1 SQ
[2023-08-26 15:58] LABS: BASO % 0.2 % (0.0-1.0); EOS # 0.1 10*3/uL (0.0-0.4); EOS % 1.3 % (1.0-4.0); HEMATOCRIT 32.4 % (42.0-52.0); LYMPH # 0.8 10*3/uL (1.3-4.4); LYMPH % 9.1 % (27.0-41.0); MEAN CELL VOLUME 98.2 fl (80.0-94.0); MEAN CORPUSCULAR HGB 29.4 pg (27.0-31.0); MEAN CORPUSCULAR HGB CONC 29.9 g/dl (33.0-37.0); MEAN PLATELET VOLUME 9.8 fl (9.6-12.3); MONO # 0.6 10*3/uL (0.1-1.0); MONO % 6.4 % (3.0-9.0); NEUT # 7.5 10*3/uL (2.3-7.9); NEUT % 82.6 % (47.0-73.0); PLATELET COUNT AUTOMATED 110 10*3/uL (130-400); RED CELL DISTRI WIDTH 15.1 % (0-14.5); WHITE BLOOD COUNT 9.1 10*3/uL (4.8-10.8)
[2023-08-26 16:20] LABS: POTASSIUM 4.8 mmol/L (3.4-5.1)
== END 2023-08-26 17:57 | disposition home or self-care (01) ==
LOC: ED 15:14
PROVIDERS: Internal Medicine
DX: E11.649 Type 2 diabetes mellitus with hypoglycemia without coma (principal); Z88.8 Allergy status to other drugs, medicaments and biological substances; Z79.899 Other long term (current) drug therapy; Z79.4 Long term (current) use of insulin; Z79.82 Long term (current) use of aspirin; Z90.49 Acquired absence of other specified parts of digestive tract; Z98.890 Other specified postprocedural states; Z87.891 Personal history of nicotine dependence

== ENCOUNTER 2023-11-25 13:26 | Inpatient (IN) | payer MEDICARE ==
[~2023-11-25] VITALS: Ht 182.9 cm; Wt 109.0 kg
[2023-11-25 13:40] VITALS: BP 140/55
[2023-11-25] MEDS ORDERED: SODIUM CHLORIDE 0.9% 1,000 ML IV ONE (13:50)
[2023-11-25 14:23] LABS: ACT PARTIAL THROMBO TIME 23.9 SECONDS (20.0-32.1)
[2023-11-25 14:30] LABS: BASO % 0.3 % (0.0-1.0); HEMATOCRIT 44.6 % (42.0-52.0); LYMPH # 0.5 10*3/uL (1.3-4.4); LYMPH % 5.3 % (27.0-41.0); MEAN CORPUSCULAR HGB 27.8 pg (27.0-31.0); MEAN CORPUSCULAR HGB CONC 28.7 g/dl (33.0-37.0); MEAN PLATELET VOLUME 11.2 fl (9.6-12.3); MONO # 0.6 10*3/uL (0.1-1.0); MONO % 6.2 % (3.0-9.0); NEUT % 86.9 % (47.0-73.0); PLATELET COUNT AUTOMATED 170 10*3/uL (130-400); RED CELL DISTRI WIDTH 16.5 % (0-14.5); WHITE BLOOD COUNT 9.2 10*3/uL (4.8-10.8)
[2023-11-25 14:41] LABS: ALKALINE PHOSPHATASE 120 U/L (46-116); BUN 31 mg/dl (9-23); CHLORIDE 96 mmol/L (98-107); LIPASE 29 U/L (12-53); SGPT/ALT 14 U/L (5-49); TOTAL PROTEIN 6.3 gm/dL (6.0-8.0)
[2023-11-25 14:48] LABS: ETHYL ALCOHOL < 3.0 mg/dl (<3)
[2023-11-25] MEDS ORDERED: INSULIN REGULAR, HUMAN 1 UNIT/0.01 ML IV ONE (14:55)
[2023-11-25] MEDS ORDERED: Albuterol Sulfate 2.5 MG/3 ML VIAL NEB ONE (15:00)
[2023-11-25] MEDS ORDERED: INSULIN REGULAR IN 0.9 % NACL 100 ML IV SCH (15:35)
[2023-11-25] MEDS ORDERED: SODIUM BICARBONATE 50 MEQ/50 ML VIAL IV ONE (15:45)
[2023-11-25] MEDS ORDERED: Haloperidol Lactate 5 MG/ML AMP IM ONE (15:45)
[2023-11-25] MEDS ORDERED: Piperacillin Sodium/Tazobact 50 ML IV SCH (16:00)
[2023-11-25] MEDS ORDERED: SODIUM BICARBONATE 50 MEQ in SODIUM CHLORIDE 0.9% 1,000 ML IV SCH (16:30)
[2023-11-25 18:00] VITALS: BP 125/40
[2023-11-25 20:00] VITALS: BP 100/57
[2023-11-25 22:27] LABS: POTASSIUM 4.1 mmol/L (3.4-5.1)
[2023-11-25 22:57] LABS: BILIRUBIN Negative (Negative); BLOOD 2+ (Negative); CLARITY Clear (Clear); COLOR Yellow (Yellow); GLUCOSE 3+ (Negative); KETONE 2+ (Negative); LEUKO ESTERASE Negative (Negative); NITRITE Negative (Negative); SPECIFIC GRAVITY >= 1.030 (1.001-1.030); UROBILINOGEN 0.2 E.U./dl (0.0-1.0)
[2023-11-25 23:04] LABS: URINE AMPHETAMINES Negative (1000ng/ml); URINE BARBITURATES Negative (200ng/ml); URINE BENZODIAZEPINES Negative (200ng/ml); URINE CANNABINOIDS (THC) Negative (50ng/ml); URINE COCAINE Negative (300ng/ml); URINE METHADONE Negative (300ng/ml); URINE OPIATES Negative (300ng/ml); URINE PHENCYCLIDINE Negative (25ng/ml)
[2023-11-25 23:26] LABS: BACTERIA 1+; RBC 0-2 rbc/hpf (0-2)
[2023-11-26] VITALS: BP 114/47
[2023-11-26 04:00] VITALS: BP 122/54
[2023-11-26] MEDS ORDERED: INSULIN REGULAR IN 0.9 % NACL 100 ML IV ONE (04:57)
[2023-11-26] MEDS ORDERED: SODIUM BICARBONATE 50 MEQ/50 ML VIAL IV ONE (05:30)
[2023-11-26 06:06] LABS: BASO % 0.2 % (0.0-1.0); EOS % 0.3 % (1.0-4.0); HEMATOCRIT 37.3 % (42.0-52.0); LYMPH # 1.8 10*3/uL (1.3-4.4); LYMPH % 19.6 % (27.0-41.0); MEAN CORPUSCULAR HGB 28.1 pg (27.0-31.0); MEAN CORPUSCULAR HGB CONC 30.8 g/dl (33.0-37.0); MEAN PLATELET VOLUME 10.4 fl (9.6-12.3); MONO # 0.8 10*3/uL (0.1-1.0); MONO % 8.9 % (3.0-9.0); NEUT # 6.3 10*3/uL (2.3-7.9); NEUT % 70.6 % (47.0-73.0); PLATELET COUNT AUTOMATED 142 10*3/uL (130-400); RED BLOOD COUNT 4.09 10*6/uL (4.50-5.90); RED CELL DISTRI WIDTH 16.5 % (0-14.5); WHITE BLOOD COUNT 8.9 10*3/uL (4.8-10.8)
[2023-11-26 06:20] LABS: MEAN CELL VOLUME 91.2 fl (80.0-94.0)
[2023-11-26] MEDS ORDERED: DEXTROSE 5% SALINE 0.45% 1,000 ML IV SCH ×2 (06:20→08:25)
[2023-11-26] MEDS ORDERED: POTASSIUM CHLORIDE 20 MEQ TAB PO SCH (06:25)
[2023-11-26 08:00] VITALS: BP 121/44
[2023-11-26] MEDS ORDERED: DEXTROSE 10 % IN WATER 250 ML IV PRN (08:25)
[2023-11-26] MEDS ORDERED: ATORVASTATIN CALCIUM 20 MG TAB PO SCH (10:00)
[2023-11-26] MEDS ORDERED: INSULIN REGULAR, HUMAN 1 UNIT/0.01 ML SC SCH (11:30)
[2023-11-26 12:00] VITALS: BP 129/43
[2023-11-26] MEDS ORDERED: Menthol/Zinc Oxide 4 GM THIN T PRN (12:00)
[2023-11-26 13:55] LABS: POTASSIUM 4.4 mmol/L (3.4-5.1)
[2023-11-26] MEDS ORDERED: TORSEMIDE20 MG PO (15:38)
[2023-11-26] MEDS ORDERED: NOVOLOG100 UNIT/1 SC (15:40)
[2023-11-26] MEDS ORDERED: FEOSOL325 MG PO (15:41)
[2023-11-26] MEDS ORDERED: POTASSIUM CHLO10 ME4 PO (15:41)
[2023-11-26] MEDS ORDERED: LYRICA25 M1 PO (15:42)
[2023-11-26] MEDS ORDERED: Zaroxolyn,Diul2.5 MG PO (15:45)
[2023-11-26] MEDS ORDERED: CO Q-1010 M2 PO (15:46)
[2023-11-26 16:00] VITALS: BP 141/55
[2023-11-26] MEDS ORDERED: Ondansetron Hydrochloride 4 MG/2 ML VIAL IV PRN (16:25)
[2023-11-26] MEDS ORDERED: CETIRIZINE10 MG PO (16:51)
[2023-11-26] MEDS ORDERED: AIRSUPRA 90-810.7 GM INH (16:52)
[2023-11-26 20:00] VITALS: BP 144/60
[2023-11-26] MEDS ORDERED: Menthol/Zinc Oxide 4 GM THIN T SCH (22:00)
[2023-11-26] MEDS ORDERED: Donepezil Hydrochloride 5 MG TAB PO SCH (22:00)
[2023-11-26] MEDS ORDERED: NYSTATIN 15 GM BOT T SCH (22:00)
[2023-11-26] MEDS ORDERED: SODIUM CHLORIDE 0.9% 1,000 ML IV SCH (22:30)
[2023-11-26] MEDS ORDERED: Insulin Glargine, Recombinan 1 UNIT/0.01 ML SC SCH (22:30)
[2023-11-26] MEDS ORDERED: INSULIN LISPRO 1 UNIT/0.01 ML SQ ONE (22:35)
[2023-11-27 05:31] LABS: POTASSIUM 5.3 mmol/L (3.4-5.1)
[2023-11-27 06:24] LABS: BASO % 0.1 % (0.0-1.0); EOS % 0.4 % (1.0-4.0); HEMATOCRIT 37.4 % (42.0-52.0); LYMPH # 1.4 10*3/uL (1.3-4.4); LYMPH % 18.8 % (27.0-41.0); MEAN CELL VOLUME 94.2 fl (80.0-94.0); MEAN CORPUSCULAR HGB 28.2 pg (27.0-31.0); MEAN CORPUSCULAR HGB CONC 29.9 g/dl (33.0-37.0); MEAN PLATELET VOLUME 10.8 fl (9.6-12.3); MONO # 0.5 10*3/uL (0.1-1.0); MONO % 6.6 % (3.0-9.0); NEUT # 5.6 10*3/uL (2.3-7.9); NEUT % 73.4 % (47.0-73.0); PLATELET COUNT AUTOMATED 121 10*3/uL (130-400); RED BLOOD COUNT 3.97 10*6/uL (4.50-5.90); RED CELL DISTRI WIDTH 17.2 % (0-14.5); WHITE BLOOD COUNT 7.7 10*3/uL (4.8-10.8)
[2023-11-27 08:00] VITALS: BP 147/52
[2023-11-27] MEDS ORDERED: Insulin Glargine, Recombinan 1 UNIT/0.01 ML SC SCH (10:00)
[2023-11-27] MEDS ORDERED: Metoprolol Tartrate 25 MG TAB PO SCH (10:00)
[2023-11-27 12:00] VITALS: BP 147/61
[2023-11-27 12:08] LABS: HEMOGOLBIN A1C >15.5 % (4.8-5.6)
[2023-11-27 16:00] VITALS: BP 129/60
[2023-11-27 20:00] VITALS: BP 130/70
[2023-11-28] VITALS: BP 120/57
[2023-11-28] MEDS ORDERED: MG-AL HYDROXIDE/SIMETICONE 30 ML UDC PO ONE (04:40)
[2023-11-28 06:01] LABS: BASO % 0.6 % (0.0-1.0); EOS # 0.2 10*3/uL (0.0-0.4); EOS % 3.8 % (1.0-4.0); LYMPH # 1.5 10*3/uL (1.3-4.4); LYMPH % 28.1 % (27.0-41.0); MEAN CELL VOLUME 94.2 fl (80.0-94.0); MEAN CORPUSCULAR HGB 28.3 pg (27.0-31.0); MEAN PLATELET VOLUME 10.4 fl (9.6-12.3); MONO # 0.3 10*3/uL (0.1-1.0); MONO % 5.9 % (3.0-9.0); NEUT # 3.2 10*3/uL (2.3-7.9); NEUT % 60.8 % (47.0-73.0); PLATELET COUNT AUTOMATED 114 10*3/uL (130-400); RED BLOOD COUNT 4.14 10*6/uL (4.50-5.90); RED CELL DISTRI WIDTH 16.7 % (0-14.5); WHITE BLOOD COUNT 5.3 10*3/uL (4.8-10.8)
[2023-11-28 07:19] LABS: POTASSIUM 4.4 mmol/L (3.4-5.1); TOTAL PROTEIN 5.3 gm/dL (6.0-8.0)
[2023-11-28 08:00] VITALS: BP 133/49
[2023-11-28 12:00] VITALS: BP 133/52
[2023-11-28] MEDS ORDERED: SODIUM CHLORIDE 0.9% 1,000 ML IV SCH (13:25)
[2023-11-28 16:00] VITALS: BP 141/58
[2023-11-28 20:00] VITALS: BP 129/55
[2023-11-29] VITALS: BP 108/45
[2023-11-29 06:07] LABS: BASO % 0.6 % (0.0-1.0); EOS # 0.2 10*3/uL (0.0-0.4); EOS % 4.3 % (1.0-4.0); HEMATOCRIT 35.4 % (42.0-52.0); LYMPH # 1.8 10*3/uL (1.3-4.4); LYMPH % 35.8 % (27.0-41.0); MEAN CELL VOLUME 92.9 fl (80.0-94.0); MEAN CORPUSCULAR HGB 28.1 pg (27.0-31.0); MEAN CORPUSCULAR HGB CONC 30.2 g/dl (33.0-37.0); MEAN PLATELET VOLUME 10.3 fl (9.6-12.3); MONO # 0.3 10*3/uL (0.1-1.0); MONO % 6.5 % (3.0-9.0); NEUT # 2.5 10*3/uL (2.3-7.9); NEUT % 50.8 % (47.0-73.0); PLATELET COUNT AUTOMATED 97 10*3/uL (130-400); RED BLOOD COUNT 3.81 10*6/uL (4.50-5.90); RED CELL DISTRI WIDTH 16.3 % (0-14.5); WHITE BLOOD COUNT 4.9 10*3/uL (4.8-10.8)
[2023-11-29 06:19] LABS: ALKALINE PHOSPHATASE 79 U/L (46-116); BUN 23 mg/dl (9-23); CHLORIDE 104 mmol/L (98-107); POTASSIUM 4.7 mmol/L (3.4-5.1); SGPT/ALT 15 U/L (5-49); TOTAL PROTEIN 4.9 gm/dL (6.0-8.0)
[2023-11-29 08:00] VITALS: BP 121/53
[2023-11-29 12:00] VITALS: BP 130/49
[2023-11-29 12:17] LABS: VITAMIN D, 25-HYDROXY 25.6 ng/mL (30-100)
[2023-11-29 16:00] VITALS: BP 128/62
[2023-11-29 20:00] VITALS: BP 145/72
[2023-11-29] MEDS ORDERED: DONEPEZIL 10 MG TAB PO SCH (22:00)
[2023-11-29] MEDS ORDERED: Memantine Hydrochloride 5 MG TAB PO SCH (22:00)
[2023-11-30] VITALS: BP 125/43
[2023-11-30 08:00] VITALS: BP 135/45
[2023-11-30 12:00] VITALS: BP 116/46
[2023-11-30 16:00] VITALS: BP 123/40
[2023-11-30 20:00] VITALS: BP 139/90
[2023-12-01 04:00] VITALS: BP 139/90
[2023-12-01 05:29] LABS: CHLORIDE 108 mmol/L (98-107); POTASSIUM 4.2 mmol/L (3.4-5.1)
[2023-12-01 05:30] LABS: BUN 13 mg/dl (9-23)
[2023-12-01 06:19] LABS: MANUAL DIFF REFLEX YES; MEAN CELL VOLUME 91.9 fl (80.0-94.0); MEAN CORPUSCULAR HGB 28.6 pg (27.0-31.0); MEAN CORPUSCULAR HGB CONC 31.2 g/dl (33.0-37.0); MEAN PLATELET VOLUME 11.1 fl (9.6-12.3); PLATELET COUNT AUTOMATED 93 10*3/uL (130-400); WHITE BLOOD COUNT 4.3 10*3/uL (4.8-10.8)
[2023-12-01 07:03] LABS: BASOPHILS 1 % (0-1); OVALOCYTES FEW; POLYCHROMASIA SLIGHT; TOTAL CELLS COUNTED 100 #CELLS
[2023-12-01 07:04] LABS: PLATELET SUFFICIENCY LOW (NORMAL); ROULEAUX SLIGHT
[2023-12-01 08:00] VITALS: BP 111/49
[2023-12-01 12:00] VITALS: BP 126/52
== END 2023-12-01 13:14 | DRG 637 ==
LOC: ED 13:26 → ICCU 15:20 → EDHOLD 15:20 → ICCU 18:02
PROVIDERS: Counselor Professional; Internal Medicine; Internal Medicine Nephrology; ADMIT Internal Medicine; ATTEND Internal Medicine
DX: E11.10 Type 2 diabetes mellitus with ketoacidosis without coma (principal); E43 Unspecified severe protein-calorie malnutrition; N17.0 Acute kidney failure with tubular necrosis; G93.41 Metabolic encephalopathy; M62.82 Rhabdomyolysis; J44.1 Chronic obstructive pulmonary disease with (acute) exacerbation; I13.0 Hypertensive heart and chronic kidney disease with heart failure and stage 1 through stage 4 chronic kidney disease, or unspecified chronic kidney disease; I50.32 Chronic diastolic (congestive) heart failure; D61.818 Other pancytopenia; K21.9 Gastro-esophageal reflux disease without esophagitis; I25.10 Atherosclerotic heart disease of native coronary artery without angina pectoris; E87.6 Hypokalemia; R62.7 Adult failure to thrive; L89.312 Pressure ulcer of right buttock, stage 2; S80.02XA Contusion of left knee, initial encounter; S90.122A Contusion of left lesser toe(s) without damage to nail, initial encounter; L89.891 Pressure ulcer of other site, stage 1; F03.90 Unspecified dementia, unspecified severity, without behavioral disturbance, psychotic disturbance, mood disturbance, and anxiety; E66.01 Morbid (severe) obesity due to excess calories; N18.32 Chronic kidney disease, stage 3b; E87.5 Hyperkalemia; F43.20 Adjustment disorder, unspecified; F17.210 Nicotine dependence, cigarettes, uncomplicated; E11.22 Type 2 diabetes mellitus with diabetic chronic kidney disease; N18.30 Chronic kidney disease, stage 3 unspecified; Z88.8 Allergy status to other drugs, medicaments and biological substances; Z91.09 Other allergy status, other than to drugs and biological substances; Z79.899 Other long term (current) drug therapy; Z79.01 Long term (current) use of anticoagulants; Z79.2 Long term (current) use of antibiotics; Z68.32 Body mass index [BMI] 32.0-32.9, adult; Z90.49 Acquired absence of other specified parts of digestive tract; Z80.8 Family history of malignant neoplasm of other organs or systems; Z83.3 Family history of diabetes mellitus; Z79.4 Long term (current) use of insulin; W18.39XA Other fall on same level, initial encounter; Y93.89 Activity, other specified; Y92.89 Other specified places as the place of occurrence of the external cause; Y99.8 Other external cause status

== ENCOUNTER 2023-12-20 16:51 | Inpatient (IN) | payer MEDICARE ==
[~2023-12-20] VITALS: Ht 182.9 cm; Wt 104.8 kg
[~2023-12-20 16:51] MED LIST changes: +AIRSUPRA 90-810.7 GM INH; +CETIRIZINE10 MG PO; +CO Q-1010 M2 PO; +FEOSOL325 MG PO; +LYRICA25 M1 PO; +Zaroxolyn,Diul2.5 MG PO
[2023-12-20] MEDS ORDERED: SODIUM CHLORIDE 0.9% 1,000 ML IV ONE (17:00)
[2023-12-20 17:14] VITALS: BP 115/37
[2023-12-20 17:21] LABS: BASO % 0.5 % (0.0-1.0); EOS % 0.4 % (1.0-4.0); HEMATOCRIT 41.8 % (42.0-52.0); LYMPH % 25.2 % (27.0-41.0); MEAN CELL VOLUME 91.9 fl (80.0-94.0); MEAN CORPUSCULAR HGB 29.9 pg (27.0-31.0); MEAN CORPUSCULAR HGB CONC 32.5 g/dl (33.0-37.0); MEAN PLATELET VOLUME 10.5 fl (9.6-12.3); MONO # 0.5 10*3/uL (0.1-1.0); NEUT # 5.2 10*3/uL (2.3-7.9); NEUT % 66.7 % (47.0-73.0); PLATELET COUNT AUTOMATED 146 10*3/uL (130-400); RED BLOOD COUNT 4.55 10*6/uL (4.50-5.90); RED CELL DISTRI WIDTH 18.1 % (0-14.5); WHITE BLOOD COUNT 7.8 10*3/uL (4.8-10.8)
[2023-12-20 17:48] LABS: POTASSIUM 4.4 mmol/L (3.4-5.1)
[2023-12-20] MEDS ORDERED: Insulin Glargine, Recombinan 1 UNIT/0.01 ML SC ONE (20:50)
[2023-12-20 23:29] LABS: BILIRUBIN Negative (Negative); BLOOD Negative (Negative); CLARITY Clear (Clear); COLOR Yellow (Yellow); GLUCOSE 3+ (Negative); KETONE Trace (Negative); LEUKO ESTERASE Negative (Negative); NITRITE Negative (Negative); SPECIFIC GRAVITY 1.015 (1.001-1.030); UROBILINOGEN 0.2 E.U./dl (0.0-1.0)
[2023-12-21] MEDS ORDERED: DEXTROSE 10 % IN WATER 250 ML IV PRN (01:25)
[2023-12-21 05:35] VITALS: BP 111/60
[2023-12-21] MEDS ORDERED: INSULIN LISPRO 1 UNIT/0.01 ML SQ SCH (07:30)
[2023-12-21 07:46] LABS: POTASSIUM 4.3 mmol/L (3.4-5.1)
[2023-12-21 08:00] VITALS: BP 120/58
[2023-12-21] MEDS ORDERED: HEPARIN SODIUM 5,000 UNIT/ML VIAL SC SCH (10:00)
[2023-12-21] MEDS ORDERED: ASPIRIN ENTERIC COATED 81 MG TAB PO SCH (10:00)
[2023-12-21] MEDS ORDERED: Insulin Glargine, Recombinan 1 UNIT/0.01 ML SC ONE (11:55)
[2023-12-21 12:00] VITALS: BP 130/76
[2023-12-21 13:30] VITALS: BP 139/72
[2023-12-21 16:00] VITALS: BP 121/61
[2023-12-21 20:00] VITALS: BP 113/52
[2023-12-21] MEDS ORDERED: Albuterol Sulfate 2.5 MG/3 ML VIAL NEB SCH (21:15)
[2023-12-21] MEDS ORDERED: BUDESONIDE 0.5 MG AMP NEB SCH (21:15)
[2023-12-21] MEDS ORDERED: ATORVASTATIN CALCIUM 20 MG TAB PO SCH (22:00)
[2023-12-21] MEDS ORDERED: Donepezil Hydrochloride 5 MG TAB PO SCH (22:00)
[2023-12-21] MEDS ORDERED: Montelukast Sodium 10 MG TAB PO SCH (22:00)
[2023-12-21] MEDS ORDERED: Budesonide/Formoterol Fumarate 80/4.5 inhaler INH SCH (22:00)
[2023-12-21] MEDS ORDERED: Metoprolol Tartrate 25 MG TAB PO SCH (22:00)
[2023-12-21] MEDS ORDERED: ACETAMINOPHEN 325 MG TAB PO PRN (23:50)
[2023-12-22] VITALS: BP 106/52
[2023-12-22] MEDS ORDERED: OMEPRAZOLE 20 MG CAP PO SCH (06:00)
[2023-12-22 06:46] LABS: BASO % 0.6 % (0.0-1.0); EOS # 0.2 10*3/uL (0.0-0.4); EOS % 3.4 % (1.0-4.0); HEMATOCRIT 36.8 % (42.0-52.0); LYMPH # 2.1 10*3/uL (1.3-4.4); LYMPH % 40.5 % (27.0-41.0); MEAN CELL VOLUME 93.4 fl (80.0-94.0); MEAN CORPUSCULAR HGB 29.9 pg (27.0-31.0); MEAN CORPUSCULAR HGB CONC 32.1 g/dl (33.0-37.0); MEAN PLATELET VOLUME 10.3 fl (9.6-12.3); MONO # 0.5 10*3/uL (0.1-1.0); MONO % 8.8 % (3.0-9.0); NEUT # 2.4 10*3/uL (2.3-7.9); NEUT % 45.9 % (47.0-73.0); PLATELET COUNT AUTOMATED 107 10*3/uL (130-400); RED BLOOD COUNT 3.94 10*6/uL (4.50-5.90); RED CELL DISTRI WIDTH 18.2 % (0-14.5); WHITE BLOOD COUNT 5.2 10*3/uL (4.8-10.8)
[2023-12-22 06:49] LABS: ALKALINE PHOSPHATASE 108 U/L (46-116); BUN 32 mg/dl (9-23); CHLORIDE 95 mmol/L (98-107); TOTAL PROTEIN 5.6 gm/dL (6.0-8.0)
[2023-12-22 06:59] LABS: POTASSIUM 3.3 mmol/L (3.4-5.1); SGPT/ALT < 7 U/L (5-49)
[2023-12-22 08:00] VITALS: BP 100/50
[2023-12-22] MEDS ORDERED: Insulin Glargine, Recombinan 1 UNIT/0.01 ML SC SCH (10:00)
[2023-12-22] MEDS ORDERED: PRASUGREL HYDROCHLORIDE 10 MG PO SCH (10:00)
[2023-12-22] MEDS ORDERED: PREGABALIN 25 MG CAP PO SCH (10:00)
[2023-12-22] MEDS ORDERED: EMPAGLIFLOZIN 10 MG TABLET PO SCH (10:00)
[2023-12-22] MEDS ORDERED: TORSEMIDE 20 MG TAB PO SCH (10:00)
[2023-12-22 12:00] VITALS: BP 110/51
[2023-12-22 16:00] VITALS: BP 105/54
[2023-12-22] MEDS ORDERED: POTASSIUM CHLORIDE 20 MEQ TAB PO ONE (16:20)
[2023-12-22 20:00] VITALS: BP 101/55
[2023-12-23] VITALS: BP 99/51
[2023-12-23] MEDS ORDERED: Albuterol Sulfate 2.5 MG/3 ML VIAL NEB PRN (08:40)
[2023-12-23] MEDS ORDERED: POTASSIUM CHLORIDE 20 MEQ TAB PO ONE (09:20)
[2023-12-23 11:28] LABS: POTASSIUM 4.1 mmol/L (3.4-5.1)
[2023-12-23] MEDS ORDERED: Insulin Glargine, Recombinan 1 UNIT/0.01 ML SC ONE (11:50)
[2023-12-23 12:00] VITALS: BP 93/57
[2023-12-23] MEDS ORDERED: SODIUM CHLORIDE 0.9% 1,000 ML IV ONE (14:00)
[2023-12-23 16:00] VITALS: BP 118/52
[2023-12-23 20:00] VITALS: BP 99/59
[2023-12-24] VITALS: BP 114/62
[2023-12-24 08:00] VITALS: BP 114/58
[2023-12-24 09:48] LABS: BASO % 0.6 % (0.0-1.0); EOS # 0.2 10*3/uL (0.0-0.4); EOS % 3.6 % (1.0-4.0); HEMATOCRIT 41.5 % (42.0-52.0); LYMPH # 2.5 10*3/uL (1.3-4.4); LYMPH % 38.8 % (27.0-41.0); MEAN CORPUSCULAR HGB 30.4 pg (27.0-31.0); MEAN PLATELET VOLUME 10.1 fl (9.6-12.3); MONO # 0.5 10*3/uL (0.1-1.0); MONO % 7.3 % (3.0-9.0); NEUT # 3.1 10*3/uL (2.3-7.9); NEUT % 48.9 % (47.0-73.0); PLATELET COUNT AUTOMATED 116 10*3/uL (130-400); RED BLOOD COUNT 4.37 10*6/uL (4.50-5.90); RED CELL DISTRI WIDTH 18.1 % (0-14.5); WHITE BLOOD COUNT 6.4 10*3/uL (4.8-10.8)
[2023-12-24] MEDS ORDERED: Insulin Glargine, Recombinan 1 UNIT/0.01 ML SC SCH (10:00)
[2023-12-24] MEDS ORDERED: Tamsulosin Hydrochloride 0.4 MG CAP PO SCH (10:00)
[2023-12-24 10:05] LABS: POTASSIUM 3.9 mmol/L (3.4-5.1)
[2023-12-24] MEDS ORDERED: LEVEMIR100 UNIT/1 SC (15:27)
[2023-12-24] MEDS ORDERED: FLOMAX0.4 MG PO (15:31)
== END 2023-12-24 16:53 | disposition home health service (06) | DRG 637 ==
LOC: ED 16:51 → EDHOLD 18:16 → 4E 18:16
PROVIDERS: Emergency Medicine; Internal Medicine Nephrology; ADMIT Internal Medicine; ATTEND Internal Medicine
DX: E11.65 Type 2 diabetes mellitus with hyperglycemia (principal); N17.0 Acute kidney failure with tubular necrosis; E44.1 Mild protein-calorie malnutrition; E87.1 Hypo-osmolality and hyponatremia; E87.20 Acidosis, unspecified; I13.0 Hypertensive heart and chronic kidney disease with heart failure and stage 1 through stage 4 chronic kidney disease, or unspecified chronic kidney disease; I50.32 Chronic diastolic (congestive) heart failure; R26.2 Difficulty in walking, not elsewhere classified; Z20.822 Contact with and (suspected) exposure to COVID-19; K21.9 Gastro-esophageal reflux disease without esophagitis; E87.6 Hypokalemia; E78.5 Hyperlipidemia, unspecified; E11.22 Type 2 diabetes mellitus with diabetic chronic kidney disease; E66.01 Morbid (severe) obesity due to excess calories; F03.90 Unspecified dementia, unspecified severity, without behavioral disturbance, psychotic disturbance, mood disturbance, and anxiety; N52.9 Male erectile dysfunction, unspecified; D69.6 Thrombocytopenia, unspecified; E86.0 Dehydration; N18.32 Chronic kidney disease, stage 3b; D64.9 Anemia, unspecified; E87.8 Other disorders of electrolyte and fluid balance, not elsewhere classified; N40.1 Benign prostatic hyperplasia with lower urinary tract symptoms; R33.8 Other retention of urine; Z79.51 Long term (current) use of inhaled steroids; Z79.4 Long term (current) use of insulin; Z79.899 Other long term (current) drug therapy; Z88.8 Allergy status to other drugs, medicaments and biological substances; Z90.49 Acquired absence of other specified parts of digestive tract; Z87.891 Personal history of nicotine dependence; Z83.3 Family history of diabetes mellitus

== ENCOUNTER 2024-03-26 15:14 | Emergency (ER) | payer MEDICARE ==
[~2024-03-26] VITALS: Ht 182.8 cm; Wt 120.2 kg
[~2024-03-26 15:14] MED LIST changes: +FLOMAX0.4 MG PO
[2024-03-26 16:38] LABS: BASO % 0.3 % (0.0-1.0); EOS # 0.1 10*3/uL (0.0-0.4); EOS % 0.9 % (1.0-4.0); HEMATOCRIT 36.5 % (42.0-52.0); MEAN CELL VOLUME 99.7 fl (80.0-94.0); MEAN CORPUSCULAR HGB 32.2 pg (27.0-31.0); MEAN CORPUSCULAR HGB CONC 32.3 g/dl (33.0-37.0); MEAN PLATELET VOLUME 9.6 fl (9.6-12.3); MONO # 0.4 10*3/uL (0.1-1.0); MONO % 6.2 % (3.0-9.0); NEUT % 72.5 % (47.0-73.0); PLATELET COUNT AUTOMATED 120 10*3/uL (130-400); RED BLOOD COUNT 3.66 10*6/uL (4.50-5.90); RED CELL DISTRI WIDTH 14.4 % (0-14.5); WHITE BLOOD COUNT 6.9 10*3/uL (4.8-10.8)
[2024-03-26 16:49] LABS: ACT PARTIAL THROMBO TIME 24.2 SECONDS (20.0-32.1)
[2024-03-26 16:56] LABS: POTASSIUM 3.9 mmol/L (3.4-5.1)
== END 2024-03-26 18:29 | disposition home or self-care (01) ==
LOC: ED 15:14
PROVIDERS: Nurse Practitioner Family
DX: S50.811A Abrasion of right forearm, initial encounter (principal); M17.11 Unilateral primary osteoarthritis, right knee; E11.22 Type 2 diabetes mellitus with diabetic chronic kidney disease; I13.0 Hypertensive heart and chronic kidney disease with heart failure and stage 1 through stage 4 chronic kidney disease, or unspecified chronic kidney disease; N18.9 Chronic kidney disease, unspecified; I50.9 Heart failure, unspecified; K21.9 Gastro-esophageal reflux disease without esophagitis; F17.210 Nicotine dependence, cigarettes, uncomplicated; Z88.8 Allergy status to other drugs, medicaments and biological substances; Z90.49 Acquired absence of other specified parts of digestive tract; Z98.890 Other specified postprocedural states; Z96.651 Presence of right artificial knee joint; W10.8XXA Fall (on) (from) other stairs and steps, initial encounter; Y93.89 Activity, other specified; Y92.039 Unspecified place in apartment as the place of occurrence of the external cause; Y99.8 Other external cause status